=== PATIENT | male | born 1950 | race Caucasian/White ===

== ENCOUNTER 2018-11-14 06:47 | Inpatient (IN) ==
--- NOTE | 2018-10-22 16:27 | PAT Medication Instructions ---
Medication Instructions Date of Service October 22, 2018 Home Medications acetaminophen [Tylenol Extra Strength] 500 mg PO Q6H PRN aspirin [Aspir-81] 81 mg PO QAM dutasteride 0.5 mg PO QAM lisinopril 10 mg PO QAM meloxicam 15 mg PO QAM simvastatin [Zocor] 20 mg PO HS tamsulosin 0.4 mg PO QAM ASK your surgeon for instructions meloxicam 15 mg PO QAM DO NOT take the morning of surgery lisinopril 10 mg PO QAM Take morning of surgery With a small sip of water, OTHERWISE NOTHING TO EAT OR DRINK AFTER MIDNIGHT: acetaminophen [Tylenol Extra Strength] 500 mg PO Q6H PRN (okay to take up to 4 hours prior to surgery if needed) aspirin [Aspir-81] 81 mg PO QAM dutasteride 0.5 mg PO QAM tamsulosin 0.4 mg PO QAM Take evening before surgery acetaminophen [Tylenol Extra Strength] 500 mg PO Q6H PRN (if needed) simvastatin [Zocor] 20 mg PO HS Other Notes If you have any questions please call us at [phone] or [phone] or [phone] or [phone]
--- NOTE | 2018-10-23 09:19 | Anesthesiology Consultation ---
Date of Service October 23, 2018 Assessment & Plan (1) Encounter for pre-operative examination: Chart Review Chart Review: Pending: Refer to Additional Notes / Consult section (pending preop testing (labs, EKG, CXR)) and Patient seen in Pre Admission Testing Teaching & Discussion Pre-Anesthesia Teaching/Discussion Notes: Instructed NPO after midnight before surgery,except medications with 15 cc of water. Medication instructions prov ided according to the PAT guidelines. History Surgery Operation Date: 11/14/18 11:00 Proposed Procedures p Right Total Knee Arthroplasty - Zeyad Rose MD Height/Weight Height: 6 ft Weight: 96.3 kg Allergies Allergy/AdvReac Type Severity Reaction Status Date / Time Penicillins Allergy Unknown Rash Verified 10/17/18 12:15 Medications Home Medications Medication Instructions Recorded Confirmed Last Taken acetaminophen [Tylenol Extra 500 mg PO Q6H PRN 10/17/18 10/17/18 Unknown Strength] aspirin [Aspir-81] 81 mg PO QAM 10/17/18 10/17/18 Unknown dutasteride 0.5 mg PO QAM 10/17/18 10/17/18 Unknown lisinopril 10 mg PO QAM 10/17/18 10/17/18 Unknown meloxicam 15 mg PO QAM 10/17/18 10/17/18 Unknown simvastatin [Zocor] 20 mg PO HS 10/17/18 10/17/18 Unknown tamsulosin 0.4 mg PO QAM 10/17/18 10/17/18 Unknown Past Medical History Medical History BPH (benign prostatic hyperplasia) Hyperlipidemia Hypertension Osteoarthritis Exercise / Class Metabolic Activity II 4-5 Yardwork/Stairs/Walk up hill Past Surgical History Surgical History History of arthroscopy LEFT KNEE History of colonoscopy History of repair of rotator cuff RIGHT Past Anesthesia History No Hx of Anesthesia Complications and No Family Hx of Anesthesia Complications History of PONV No Hx of PONV and No Hx of Motion Sickness Social History Smoking Status: Never smoker Do You Dip or Chew Tobacco: No Hx Alcohol Use: Yes Alcohol Intake Frequency Comment: RARE Hx Substance Use: No substance use type: does not use Review of Systems Patient denies chest pain, shortness of breath, dyspnea on exertion, reflux, cough, wheezing, palpitations. Physical Exam Vital Signs VITALS BP 110/69 P 67 TEMP 97.5 SP02 96%RA RESP 16 PHYSICAL Full neck and c-spine range of motion. Full TMJ range of motion. TMD 3 finger breaths Mallampati Score 1 Dentition: missing molars, crown on side Lungs: clear throughout to auscultation Cardiac: regular rate and rhythm, no murmurs noted Spine: normal Carotid arteries: negative bruit Extremities: no edema Testing Laboratory Results 10/04/18 SODIUM 141 POTASSIUM 4.6 CHLORIDE 104 CO2 26 BUN 19 CREATININE 0.9 GLUCOSE 106
--- NOTE | 2018-10-23 10:05 | XRay Report ---
XR chest Pre-admission PA/Lat CLINICAL HISTORY: 68 years-old Male presenting with preoperative assessment. TECHNIQUE: PA and lateral views of the chest were obtained. COMPARISON: None. FINDINGS: Atherosclerosis of the aortic arch. Cardiac silhouette top normal in size. Lungs and pleural spaces c lear. Degenerative changes of the thoracic spine. Upper abdomen normal. IMPRESSION: 1. No acute cardiopulmonary disease. Electronically signed by: Marvin Ashley M.D. 10/23/2018 10:03 AM
[2018-10-23 11:46] LABS: Basophils # (auto) 0.01 K/uL (0-0.2); Basophils % (auto) 0.1 %; Eosinophils % (auto) 2.9 %; Hematocrit (blood only) 43.7 % (42-52); Hemoglobin 14.9 g/dL (14.0-18.0); Immature Granulocytes # (auto) 0.01 K/uL (0.00-0.02); Immature Granulocytes % (auto) 0.1 %; Lymphocytes # (auto) 1.82 K/uL (1.2-3.4); Lymphocytes % (auto) 26.8 %; Mean Corpuscular Hemoglobin 32.4 pg (25-34); Mean Corpuscular Hgb Conc 34.1 g/dL (32-36); Mean Platelet Volume 10.4 fL (7.4-10.4); Monocytes # (auto) 0.64 K/uL (0.11-0.59); Monocytes % (auto) 9.4 %; Neutrophils % (auto) 60.7 %; Platelet Count 210 K/uL (130-400); RDW Coefficient of Variation 13.3 % (11.5-14.5); RDW Standard Deviation 45.9 fL (36.4-46.3); White Blood Count 6.78 K/uL (4.8-10.8)
[2018-10-23 11:50] LABS: Appearance Urine Clear (Clear); Bilirubin Urine Negative (Negative); Blood Urine Negative (Negative); Color Urine Yellow; Glucose Urine UA Negative (Negative); Ketones Urine Negative (Negative); Leukocyte Esterase Urine Negative (Negative); Nitrite Urine Negative (Negative); Protein Urine Negative (Negative); Specific Gravity Urine 1.027 (1.000-1.030); Urobilinogen Urine Negative (Negative); pH Urine 6.5 (4.5-7.5)
[2018-10-23 12:02] LABS: Partial Thromboplastin Time 26.2 Seconds (21.0-31.0); Prothrombin Time 10.3 Seconds (9.0-12.0)
[2018-10-23 12:51] LABS: Estimated Average Glucose 117 mg/dl; Hemoglobin A1C 5.7 % (4.5-5.6)
--- NOTE | 2018-11-13 20:40 | History and Physical Report ---
DATE OF ADMISSION: 11/14/2018 CHIEF COMPLAINT: Chronic right knee pain. HISTORY OF PRESENT ILLNESS: This is a 68-year-old male patient of Dr. Ross, complaining of chronic right knee pain, longstanding, now progressively getting worse. The patient has failed conservative treatment including Voltaren gel, Tylenol, anti-inflammatories and home exercise program. The patient has increased pain with weightbearing activities and his pain does interfere with his activities of daily living. The patient has been diagnosed with end-stage osteoarthritis per clinical and radiographic exams. The patient wished to proceed with a right total knee arthroplasty. PAST MEDICAL HISTORY: Hypertension, hypercholesterolemia, osteoarthritis. SOCIAL HISTORY: Nonsmoker, nondrinker. PAST SURGICAL HISTORY: Right shoulder and left knee. FAMILY HISTORY: Noncontributory. REVIEW OF SYSTEMS: Chronic right knee pain, otherwise denies any shortness of breath, chest pain, nausea, vomiting or any other joint complaints. MEDICATIONS: 1. Meloxicam 15 mg daily. 2. Vardenafil 10 mg daily. 3. Tamsulosin 0.4 mg every day half hour after a meal. 4. Simvastatin 20 mg daily. 5. Lisinopril 10 mg daily. 6. Dutasteride 0.5 mg daily. 7. Diclofenac gel 1% topical 4 times to affected area. 8. Aspirin 81 mg daily. ALLERGIES: PENICILLIN, WHICH CAUSES A RASH. PHYSICAL EXAMINATION: GENERAL: Well-developed, well-nourished 68-year-old male in no acute distress. He is alert and oriented x3 and pleasant. HEENT: Normocephalic, atraumatic. Extraocular motions are intact. Pupils are equal and reactive to light. HEART: Regular rate and rhythm, no murmurs appreciated. LUNGS: Clear. ABDOMEN: Soft, nontender, bowel sounds present. EXTREMITIES: Right knee limited range of motion of 0-125 with a mild effusion. He has a varus deformity with medial joint line tenderness. He has 5/5 strength. NEUROLOGIC: Neurovascularly, he is intact in his right lower extremity. DIAGNOSES: Right knee end-stage osteoarthritis, hypertension, hypercholesterolemia, osteoarthritis. PLAN: The patient was advised of his diagnosis. Indications, risks, benefits, postop course have all been reviewed. The patient wished to proceed with a right total knee arthroplasty. Necessary consent forms, preoperative testing and clearances will be obtained.
[~2018-11-14 06:47] MED LIST: ACETAMINOPHEN 500 MG TAB PO SCH; BUPIVACAINE 0.5 % 5 MG/1 ML PF 10ML VIAL ONE; CeleBREX 200 MG CAP PO SCH; FAMOTIDINE 20 MG TAB PO SCH; GABAPENTIN 300 MG CAP PO SCH; LR 500ML BOLUS, THEN 15ML/HR IV SCH; METOCLOPRAMIDE HCL 10 MG TABLET PO SCH; ROPIVACAINE 0.5% HCL/PF 150 MG, BUPIVACAINE 0.5% MPF 30 ML, EPINEPHrine 30MG/30ML (OR U... INFIL SCH; TRANEXAMIC ACID 1,000 MG **IV Intra-op IV SCH; TRANEXAMIC ACID 1,000 MG **IV Pre-op IV SCH; VANCOMYCIN HCL 1,500 MG in SODIUM CHLORIDE 0.9% 500 ML IV SCH; dexAMETHasone 4 MG TAB PO SCH
[2018-11-14] MEDS ORDERED: ORTHO JOINT ANESTHETIC ONE (06:59)
[2018-11-14] MEDS ORDERED: BACITRACIN INJ 50,000 UNIT VIAL ONE (06:59)
[2018-11-14] MEDS ORDERED: MIDAZOLAM HCL 1 MG/ML 2ML VIAL ONE ×3 (07:18→09:43)
--- NOTE | 2018-11-14 07:20 | History & Physical Bridge Note ---
Date of Service November 14, 2018 History & Physical Bridge Note I have examined the patient, reviewed the History & Physical and in the interval since the performance of the History & Physical I have noted the following changes of clinical significance: no changes noted
[2018-11-14] MEDS ORDERED: LIDOCAINE HCL 2% 2 ML VIAL/AMP(20MG/ML) INFIL ONE (07:21)
[2018-11-14] MEDS ORDERED: PROPOFOL IV EMULSION 10 MG/ML 20 ML VIAL IV ONE ×3 (07:21→10:08)
[2018-11-14] MEDS ORDERED: ePHEDrine sulfate 50 MG/ML AMP IV PRN (07:53)
[2018-11-14] MEDS ORDERED: fentaNYL citrate 100 MCG/2 ML VIAL IV PRN (07:53)
[2018-11-14] MEDS ORDERED: ONDANSETRON INJ 2 MG/ML 2 ML VIAL IV PRN ×2 (07:53→12:07)
[2018-11-14] MEDS ORDERED: ATROPINE SULFATE 0.1 MG/ML 10ML SYR IV PRN (07:53)
[2018-11-14] MEDS ORDERED: fentaNYL citrate 100 MCG/2 ML VIAL ONE (09:55)
[2018-11-14] MEDS ORDERED: ONDANSETRON INJ 2 MG/ML 2 ML VIAL ONE (09:55)
--- NOTE | 2018-11-14 10:25 | Post Operative Brief Note ---
Immediate Post Op Note v1 Date of Surgery November 14, 2018 Pre & Post Diagnosis Operation Date: 11/14/18 08:40 Pre-Op Diagnosis: Right Knee Osteoarthritis Post-Op Diagnosis: Right Knee Osteoarthritis I personally identified the patient: Yes Procedure Operation Date: 11/14/18 08:40 Actual Procedures p Right Total Knee Arthroplasty(Right) - Zeyad Rose MD Surgeon Zeyad Rose MD Manager Social Media Juarez MURDOCK Estimated Blood Loss 5 Findings Consistent with Post-Op Diagnosis Specimens Bone cuts Drains Hemovac Drain Anesthesia Type MAC Spinal Regional Complications none Disposition Accompanied Patient To Recovery: No Disposition: Recovery Room Overlapping Procedure I was present for: the critical portions of procedure.
--- NOTE | 2018-11-14 11:25 | XRay Report ---
XR knee RT 2V routine CLINICAL HISTORY: Surgical Post Op COMPARISON: None. DISCUSSION: There are postsurgical changes of a total right knee arthroplasty and patellar resurfacin g. Overlying skin orion and surgical drains are evident. The femoral tibial components appear well seated. There is soft tissue gas consistent with recent surgery. IMPRESSION: Postsurgical changes of a total right knee arthroplasty. Electronically signed by: Boris Bergman M.D. 11/14/2018 11:23 AM
--- NOTE | 2018-11-14 11:37 | Anesthesiology Progress Note ---
Date of Service November 14, 2018 Anesthesia Post Procedure Vital Signs Vital Signs: Temp Pulse Pulse Resp BP Pulse Ox 11/14/18 11:35 98.2 F 61 16 110/69 96 11/14/18 11:25 98.2 F 68 16 106/68 96 11/14/18 11:15 65 16 108/59 L 96 11/14/18 11:05 75 16 106/63 96 11/14/18 10:55 77 16 117/62 96 11/14/18 10:47 99.0 F 80 16 102/60 96 11/14/18 07:51 97.9 F 70 20 145/77 H 96 Pain Intensity Right Knee: Pain Intensity: 1 Transfer of Care Handoff Completed per policy Notes Mental Status: alert / awake / arousable and participated in evaluation Patient Amnestic to Procedure: Yes Nausea / Vomiting: adequately controlled Pain: adequately controlled Airway Patency, RR, SpO2: stable & adequate BP & HR: stable & adequate Hydration State: stable & adequate Neuraxial Anesthesia: was administered and sensory block is resolving Anesthetic Complications: no major complications apparent and Pt Satisfied with anesthetic care
[2018-11-14] MEDS ORDERED: MAGNESIUM HYDROXIDE SUSP 30 ML UDC PO PRN (12:07)
[2018-11-14] MEDS ORDERED: bisacodyL 10 MG SUPP PR PRN (12:07)
[2018-11-14] MEDS ORDERED: NALOXONE HCL 0.4 MG/1 ML VIAL/CARP IV PRN (12:07)
[2018-11-14] MEDS ORDERED: VANCOMYCIN CONSULT ACTIVE PRN (12:07)
[2018-11-14] MEDS ORDERED: HYDROmorphone INJ 0.5 MG/0.5 ML SYR IV PRN (12:07)
[2018-11-14] MEDS: SODIUM CHLORIDE 0.9% 1000ML 1,000 ML IV SCH ×2 (12:30→21:33)
--- NOTE | 2018-11-14 13:12 | Hospitalist Consultation ---
Date of Consultation November 14, 2018 Assessment & Plan (1) History of arthroplasty of right knee: - POD#0 - activity and wound care orders as per ortho - pain control with bowel regimen - PT/OT - monitor H/H for acute blood loss anemia and transfuse blood products PRN - EBL 5cc (2) Hypertension: -BP controlled, continue lisinopril (3) Hyperlipidemia: -Continue statin (4) BPH (benign prostatic hyperplasia): -Continue dutasteride and tamsulosin (5) DVT prophylaxis: -Aspirin 81 mg twice daily as per orthopedics Thank you for this consultation. We will follow the patient with you during their hospital stay. You can reach a member of the [facility] Hospitalist Team 29/08 via pager @ [phone]. Patient was seen in collaboration with Dr. Ma and will be followed by Dr. Bryant beginning 11/15. Supervising Physician Co-Signing Physician Notes Attending addendum The patient was seen and examined in the medical floor He is a status post right knee arthroplasty, POD #0 He denies any significant symptoms except bilateral leg numbness secondary to surgery and right knee pain Denies any chest pain, palpitation, shortness of breath, abdominal pain, nausea and/or vomiting On examination No apparent distress at rest He is hemodynamically stable Chest clear to auscultate bilaterally Heart S1-S2 regular, no murmur appreciated Abdomen-soft, benign, nontender Extremities-trace edema bilateral His labs and imaging studies reviewed Has high blood pressure and hyperlipidemia which are stable Agree with assessment and plan as outlined above by Treasure Ma History of Present Illness Reason for Consultation: Postop medical management Requesting Physician: Dr. Rose Attending Physician: Dr. Ma History of Present Illness 68-year-old male who is status post right total knee arthroplasty today by Dr. Rose. Postoperatively the patient is doing well. Pain is well controlled. He continues to have numbness of the bilateral lower extremities from anesthesia. He denies chest pain and shortness of breath. No abdominal pain or nausea. Denies lightheadedness and dizziness. He has not voided since surgery. Allergies Allergy/AdvReac Type Severity Reaction Status Date / Time Penicillins Allergy Unknown Rash Verified 11/14/18 07:24 Home Medications Home Medications Medication Instructions Recorded Confirmed Type acetaminophen [Tylenol Extra 500 mg PO Q6H PRN 10/17/18 11/14/18 History Strength] aspirin [Aspir-81] 81 mg PO QAM 10/17/18 11/14/18 History dutasteride 0.5 mg PO QAM 10/17/18 11/14/18 History lisinopril 10 mg PO QAM 10/17/18 11/14/18 History meloxicam 15 mg PO QAM 10/17/18 11/14/18 History simvastatin [Zocor] 20 mg PO HS 10/17/18 11/14/18 History tamsulosin 0.4 mg PO QAM 10/17/18 11/14/18 History Patient History Medical History Hypertension (Chronic) Hyperlipidemia (Chronic) BPH (benign prostatic hyperplasia) (Chronic) Osteoarthritis (Chronic) Surgical History History of repair of rotator cuff (Chronic) RIGHT History of arthroscopy (Chronic) LEFT KNEE History of colonoscopy (Chronic) Family History Father Hypertension Brother Prostate cancer Mother Hypertension Social History Preferred Language: Amharic Communication Ability: Effective 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: No Beliefs That Will Affect Care: None Current Living Situation: Family Other Information That Helps Us Care for You: No Feels Safe at Home: Yes Safety Concerns: Feels Safe At This Time Smoking Status: Never smoker Do You Dip or Chew Tobacco: No ; Second Hand Exposure: No ; Tobacco Cessation Education Requested by Patient: No Hx Alcohol Use: Yes Hx Substance Use: No Review of Systems Review of Systems: ROS per HPI, all other systems reviewed and negative Physical Exam Constitutional: WD/WN, vitals as above Eyes: PERRL, conjunctivae normal, anicteric sclerae ENMT: external ear and nose normal, oropharynx normal Respiratory: normal respiratory effort, lungs clear to auscultation Cardiovascular: Rate/Rhythm: regular rate and regular rhythm Vessels: normal peripheral pulses Extremities: no edema Gastrointestinal (Abdomen): normal bowel sounds, soft, nontender, no hepatosplenomegaly Musculoskeletal: Extremities: no cyanosis and no clubbing S/P right knee surgery, surgical dressing dry and intact, drain in place draining bloody drainage, circulation intact however sensory and movement remains decreased from anesthesia Skin: no rashes, warm and dry Neurologic: PERRL, EOMI, accommodation nl, no face palsy, no dysarthria Psychiatric: A+Ox3, euthymic affect Results & Data Vital Signs (Past 12 Hours) Vital Signs Temp Pulse Pulse Resp BP Pulse Ox 11/14/18 12:26 62 16 129/74 97 11/14/18 11:50 36.3 C L 62 12 117/74 97 11/14/18 11:35 36.8 C 61 16 110/69 96 11/14/18 11:25 36.8 C 68 16 106/68 96 11/14/18 11:15 65 16 108/59 L 96 11/14/18 11:05 75 16 106/63 96 11/14/18 10:55 77 16 117/62 96 11/14/18 10:47 37.2 C 80 16 102/60 96 11/14/18 07:51 36.6 C 70 20 145/77 H 96
[2018-11-14] MEDS: ACETAMINOPHEN 500 MG TAB PO SCH ×2 (13:47→21:33)
--- NOTE | 2018-11-14 17:24 | Operative Report ---
Post Operative Report Pre & Post Diagnosis Operation Date: 11/14/18 08:40 Pre-Op Diagnosis: Right Knee Osteoarthritis Post-Op Diagnosis: Right Knee Osteoarthritis I personally identified the patient: Yes Procedure Operation Date: 11/14/18 08:40 Actual Procedures p Right Total Knee Arthroplasty(Right) - Zeyad Rose MD Surgeon Zeyad Rose MD Blocker And Cutter Contact Lens Juarez MURDOCK Estimated Blood Loss 5 Findings Consistent with Post-Op Diagnosis Specimens Bone cuts Drains 2 Hemovac Anesthesia Type MAC Spinal Regional Complications none Disposition Accompanied Patient To Recovery: No Disposition: Recovery Room Indications 68-year-old active male with bilateral knee osteoarthritis. He has varus knees [id number] medial compartment bilateral knees but the right knee is worse than his left. Patient is also having a feeling of instability in the right knee. Description of Procedure Patient taken to the operating room the size under spinal MAC regional anesthesia. Patient was placed supine on the operating table. A pneumatic tourniquet was placed about the right upper thigh. The right lower extremity was prepped and draped in sterile fashion. Knee exam demonstrated varus knee positive Rochelle exam -5 through 120 degrees range of motion. The leg was elevated exsanguinated with an Esmarch bandage and pneumatic tourniquet was raised to 300 millimeters of mercury. Skin incised sharply in longitudinal fashion. Subcutaneous flaps elevated. Incision was made through the medial retinaculum extending up in the mid third of the quadriceps tendon and down to the medial tibial tubercle. Intra-articular findings demonstrated chronic ACL tear eburnated bone medial compartment with bone loss posterior medial joint space femoral condyle and tibia tricompartmental OA including patellofemoral joint with large patellofemoral osteophytes. Patient also had posterior medial posterior lateral osteophytes and femoral condyles. The [employer] triathlon total knee arthroplasty system was used. To expose the knee the infrapatellar fat pad was resected. The meniscal remnants and cruciate ligaments were resected. The anterior fat pad over the femur in the area of the anterior flange of the femoral component was resected. Lateral synovial bands release. The femur was exposed. An intramedullary drill hole was made into the canal. A guide martina was placed. Distal femoral cutting guide was adjusted to resect a 5 degree valgus cut with 10 millimeters distal femur resected. The knee was extended and a subperiosteal peel lateral release was performed around the patella. Patella width was measured and width was reproduced using a freehand cut technique and a 39 symmetrical patella component. The 3 drill holes were made and the excess lateral facet was beveled off to prevent any impingement. Attention was taken back to the femur which was exposed with retractors and the femoral sizing guide was pinned in position. The drill holes were placed in 3 of external rotation to match epicondylar axis. Femur sized for an 8 component. The 4-in-1 cutting block was placed and then the anterior posterior and chamfer cuts are made. The tibia was then subluxed. The external tibial cutting guide was just to make a perpendicular cut to the long axis of the tibia below the most deficient bone loss side. A lamina mobile homes repairer was used and the flexion extension gaps were balanced. All posterior osteophytes removed. All meniscal remnants were resected. The tibia exposed and the trial tibial component size 7 was externally rotated in line with the tibial tubercle and pinned in position. The punch for stem was used. The notch cutting device was centered appropriately and the femoral notch cut was made. The femoral trial was inserted. Trial tibial inserts were placed and size 9 mm gave balanced ligaments through flexion and extension. Patella tracking was assessed. The patella tracked centrally. The trial components were then removed and the orthomix anesthetic cocktail was injected per protocol. The knee was then copiously irrigated with pulsatile lavage antibiotic solution. Final components were then cemented with Simplex cement. Final components were size 8 right posterior stabilized triathlon Raymond total knee replacement femoral component, size 7 primary tibial baseplate, size 9 posterior stabilized tibial insert X3 polyethylene, size 39 x 11 symmetrical X3 polyethylene patella. While the cement cured the Betadine soak was used per protocol. After cement cured further pulsatile lavage irrigation performed and 2 Hemovac drains were brought out laterally. The quadriceps tendon and medial retinaculum were closed with figure of 8 #1 Vicryl sutures. The knee was taken through full range of motion and the repair was secure. The subcutaneous tissues were closed with 2-0 Vicryl sutures. Skin was closed with orion. Sterile dressings were applied. Patient procedure well. Juarez MURDOCK was my physician floral assistant who assisted in patient positioning prepping and draping,leg positioning ,soft tissue retraction and instrument management and participated in the closing and will participate in postoperative care of the patient. The patient tolerated the procedure well. I attest to the content of the Intraoperative Record and any orders documented therein. Any exceptions are noted below.
[2018-11-14] MEDS: DUTASTERIDE - ORDER AWAITING ACTION SCH (17:32)
[2018-11-14] MEDS: FERROUS GLUCONATE 324 MG TAB PO SCH (17:33)
[2018-11-14] MEDS ORDERED: VANCOMYCIN HCL 1,500 MG in SODIUM CHLORIDE 0.9% 500 ML IV SCH (20:00)
[2018-11-14] MEDS ORDERED: VANCOMYCIN HCL 1,500 MG in SODIUM CHLORIDE 0.9% 250 ML IV SCH (20:00)
[2018-11-14] MEDS: ASPIRIN 81 MG ECTAB PO SCH (21:03)
[2018-11-14] MEDS: DOCUSATE SODIUM 100 MG CAP PO SCH (21:03)
[2018-11-14] MEDS: SENNA 8.6 MG TAB PO SCH (21:03)
[2018-11-14] MEDS: SIMVASTATIN 20 MG TAB PO SCH (21:04)
[2018-11-15] MEDS: DUTASTERIDE - ORDER AWAITING ACTION SCH ×4 (00:19→23:27)
[2018-11-15] MEDS: OXYCODONE HCL IR 5 MG TAB (IMMEDIATE RELEASE) PO PRN ×4 (00:40→21:31)
[2018-11-15] MEDS: ACETAMINOPHEN 500 MG TAB PO SCH ×3 (04:20→21:26)
[2018-11-15 05:35] LABS: Hematocrit (blood only) 35.3 % (42-52); Hemoglobin 12.1 g/dL (14.0-18.0); Mean Corpuscular Hemoglobin 31.9 pg (25-34); Mean Corpuscular Hgb Conc 34.3 g/dL (32-36); Mean Corpuscular Volume 93.1 fL (80-100); Mean Platelet Volume 10.5 fL (7.4-10.4); Platelet Count 159 K/uL (130-400); RDW Coefficient of Variation 13.4 % (11.5-14.5); RDW Standard Deviation 45.8 fL (36.4-46.3); Red Blood Count 3.79 M/uL (4.7-6.1); White Blood Count 15.79 K/uL (4.8-10.8)
[2018-11-15 06:02] LABS: BUN Creatinine Ratio 26.1 (10-20); Calcium 7.7 mg/dl (8.5-10.1); Creatinine Clr Calc Pharmacy 104.9 ml/min; Est GFR (African American) 105.6; Est GFR (Non-African American) 91.1; Potassium 4.1 mmol/L (3.5-5.1)
--- NOTE | 2018-11-15 08:18 | Anesthesiology Progress Note ---
Date of Service November 15, 2018 Anesthesia Post Procedure Vital Signs Vital Signs: Temp Pulse Pulse Resp BP Pulse Ox 11/15/18 07:44 36.5 C 61 16 96/52 L 94 11/15/18 04:10 36.5 C 61 18 107/62 96 11/15/18 00:02 36.5 C 61 18 111/62 94 11/14/18 19:25 36.5 C 120/67 11/14/18 19:06 36.3 C L 60 18 93/53 L 99 11/14/18 15:37 58 L 16 97/61 L 96 11/14/18 13:50 65 16 93/55 L 97 11/14/18 12:50 72 16 110/76 96 11/14/18 12:26 62 16 129/74 97 11/14/18 11:50 36.3 C L 62 12 117/74 97 11/14/18 11:35 36.8 C 61 16 110/69 96 11/14/18 11:25 36.8 C 68 16 106/68 96 11/14/18 11:15 65 16 108/59 L 96 11/14/18 11:05 75 16 106/63 96 11/14/18 10:55 77 16 117/62 96 11/14/18 10:47 37.2 C 80 16 102/60 96 Pain Intensity Right Knee: Pain Intensity: 4 Notes Mental Status: alert / awake / arousable and participated in evaluation Patient Amnestic to Procedure: Yes Nausea / Vomiting: adequately controlled Pain: adequately controlled Airway Patency, RR, SpO2: stable & adequate BP & HR: stable & adequate Hydration State: stable & adequate Neuraxial Anesthesia: was administered and sensory block resolved Anesthetic Complications: no major complications apparent
--- NOTE | 2018-11-15 08:23 | Hospitalist Progress Note ---
Date of Service November 15, 2018 Assessment & Plan (1) History of arthroplasty of right knee: POD#1 s/p R TKA by Dr. Rose -Pt is doing well post-operatively -Per ortho for pain control, wound care, anticoagulation and activities -H&H stable. Hgb of 12.1 today (pre-op hgb 14.9) -Continue incentive spirometry, PT/OT when appropriate (2) Hypertension: Asymptomatic hypotension today with BP 96/52 -Will hold morning dose of lisinopril (3) Hyperlipidemia: Continue statin (4) BPH (benign prostatic hyperplasia): Continue dutasteride and tamsulosin -Some post-op urinary hesitancy but only required straigh cath x 1 last evening -Bladder scan PRN (5) DVT prophylaxis: Aspirin 81 mg twice daily as per orthopedics Thank you for this consultation. We will follow the patient with you during their hospital stay. You can reach a [facility] via pager @ [phone]. Patient seen in collaboration with Dr. Bryant. Please see addendum. Supervising Physician Co-Signing Physician Notes I have seen and examined the patient and have discussed the case with the provider above. I agree with the assessment and plan as stated. 68 yo M s/p right total knee arthroplasty, postop day 1 for R knee osteoarthritis. He is tolerating p.o., denies significant pain, which is controlled with medications. Blood pressure is at goal. Continue plan as above. Thank you for this consultation we will follow the patient for the remainder of his hospitalization. DO Manny Subjective Seen in [id number]. Patient feeling well today. Some surgical site pain with move ment, otherwise no complaints. Denies fever, chills, lightheadedness, visual changes, chest pain or SOB. Tolerating diet well, no nausea or vomiting. Some urinary hesitancy but only requiring straight cath once last evening. No flatus or BM post-operatively. Review of Systems Review of Systems: At least ten systems reviewed and negative except as noted in the HPI. Physical Exam Physical Exam: General Appearance: WD/WN, vitals as above, NAD, sitting up in bed, pleasant, conversing easily Head: normocephalic, atraumatic Eyes: normal inspection, PERRL, conjunctivae normal, anicteric sclerae ENT: external ear and nose normal, oropharynx normal Neck: trachea midline, no thyromegaly normal visual inspection Respiratory: lungs clear to auscultation, no wheeze, rales, rhonchi. Normal insp/exp effort, no accessory muscle use Cardiovascular: regular rate, rhythm, no murmur, normal peripheral pulses Chest: normal inspection of chest Abdomen/GI: normal bowel sounds, soft, nontender, no hepatosplenomegaly Extremities/Musculoskelatal: R knee with surgical dressing: clean, dry intact. +Drain visualized. No cyanosis or clubbing, extremities motor strength 5/5 Neurologic: PERRL, EOMI, no dysarthria CN's II-XI intact bilaterally and moves all extremities Psychiatric: A+Ox3, euthymic affect Skin: no rashes, normal color, warm/dry Results & Data Vital Signs (Past 12 Hours) Vital Signs Temp Pulse Resp BP Pulse Ox 11/15/18 07:44 36.5 C 61 16 96/52 L 94 11/15/18 04:10 36.5 C 61 18 107/62 96 11/15/18 00:02 36.5 C 61 18 111/62 94 Laboratory Results Short CBC 11/15/18 Range/Units 04:54 WBC 15.79 H (4.8-10.8) K/uL Hgb 12.1 L (14.0-18.0) g/dL Hct 35.3 L (42-52) % Plt Count 159 (130-400) K/uL BMP 11/15/18 04:54 Sodium 139 Potassium 4.1 Chloride 111 H Carbon Dioxide 23 BUN 21 H Creatinine 0.80 Glucose 114 H Calcium 7.7 L
[2018-11-15] MEDS: MULTIVITAMIN TAB PO SCH (08:35)
[2018-11-15] MEDS: DOCUSATE SODIUM 100 MG CAP PO SCH ×2 (08:35→21:25)
[2018-11-15] MEDS: TAMSULOSIN HCL 0.4 MG CAP PO SCH (08:35)
[2018-11-15] MEDS: FERROUS GLUCONATE 324 MG TAB PO SCH ×2 (08:35→17:44)
[2018-11-15] MEDS: ASPIRIN 81 MG ECTAB PO SCH ×2 (08:35→21:25)
[2018-11-15] MEDS ORDERED: NON-FORMULARY MEDICATION (Dutasteride 0.5 MG) PO SCH (09:00)
[2018-11-15] MEDS ORDERED: lisinopriL 10 MG TAB PO SCH (09:00)
--- NOTE | 2018-11-15 10:03 | Hospitalist Progress Note ---
Date of Service November 15, 2018 Results & Data Vital Signs (Past 12 Hours) Vital Signs Temp Pulse Resp BP Pulse Ox 11/15/18 07:44 36.5 C 61 16 96/52 L 94 11/15/18 04:10 36.5 C 61 18 107/62 96 11/15/18 00:02 36.5 C 61 18 111/62 94
--- NOTE | 2018-11-15 10:21 | Orthopedic Progress Note ---
Date of Service November 15, 2018 Assessment & Plan (1) History of arthroplasty of right knee: POD #1, Right TKA PT/ OT DVT proph- ASA D/C planning- Home w OPPT As per medicine. Subjective POD #1, Doing well. Denies SOB, Cp, N/V. Pain controlled well. Wishes OPPT . Physical Exam Physical Exam: Right knee dresings c/d/i, no drainage, drain in tact. Toes/ ankle mobile. No calf tenderness. N/V+. A&Ox3. Results & Data Vital Signs (Past 12 Hours) Vital Signs Temp Pulse Resp BP Pulse Ox 11/15/18 07:44 36.5 C 61 16 96/52 L 94 11/15/18 04:10 36.5 C 61 18 107/62 96 11/15/18 00:02 36.5 C 61 18 111/62 94
[2018-11-15] MEDS: SIMVASTATIN 20 MG TAB PO SCH (21:25)
[2018-11-15] MEDS: SENNA 8.6 MG TAB PO SCH (21:25)
[2018-11-16] MEDS: OXYCODONE HCL IR 5 MG TAB (IMMEDIATE RELEASE) PO PRN ×2 (05:43→10:36)
[2018-11-16] MEDS: ACETAMINOPHEN 500 MG TAB PO SCH (05:43)
[2018-11-16 05:58] LABS: Hemoglobin 12.6 g/dL (14.0-18.0); Mean Corpuscular Hemoglobin 32.1 pg (25-34); Mean Corpuscular Hgb Conc 34.1 g/dL (32-36); Mean Corpuscular Volume 94.4 fL (80-100); Mean Platelet Volume 10.7 fL (7.4-10.4); Platelet Count 176 K/uL (130-400); RDW Coefficient of Variation 13.8 % (11.5-14.5); Red Blood Count 3.92 M/uL (4.7-6.1); White Blood Count 10.78 K/uL (4.8-10.8)
[2018-11-16 06:34] LABS: BUN Creatinine Ratio 23.2 (10-20); Creatinine Clr Calc Pharmacy 90.2 ml/min; Est GFR (African American) 96.7; Est GFR (Non-African American) 83.5; Potassium 4.1 mmol/L (3.5-5.1)
[2018-11-16] MEDS: DUTASTERIDE - ORDER AWAITING ACTION SCH (06:43)
--- NOTE | 2018-11-16 07:46 | Orthopedic Progress Note ---
Date of Service November 16, 2018 Assessment & Plan (1) History of arthroplasty of right knee: POD #2, Right TKA PT/ OT DVT proph- ASA D/C planning- Home w OPPT today. As per medicine. Subjective POD #2, Doing well. Denies SOB, CP, N/V. Pain controlled well. Physical Exam Physical Exam: Right knee silverlon c/d/i, no drainage, no erythema. Toes/ ankle mobile. No calf tenderness. N/V+. A&Ox3. Results & Data Vital Signs (Past 12 Hours) Vital Signs Temp Pulse Resp BP Pulse Ox 11/16/18 06:12 36.7 C 65 16 150/79 H 99 11/15/18 23:43 36.6 C 73 16 129/77 98
[2018-11-16] MEDS: TAMSULOSIN HCL 0.4 MG CAP PO SCH (08:07)
[2018-11-16] MEDS: ASPIRIN 81 MG ECTAB PO SCH (08:07)
[2018-11-16] MEDS: MULTIVITAMIN TAB PO SCH (08:07)
[2018-11-16] MEDS: DOCUSATE SODIUM 100 MG CAP PO SCH (08:07)
[2018-11-16] MEDS: FERROUS GLUCONATE 324 MG TAB PO SCH (08:07)
--- NOTE | 2018-11-19 07:22 | Discharge Summary ---
Date of Service November 19, 2018 Admission HPI Per Admitting Provider This is a 68-year-old male patient of Dr. Rose'jessenia, complaining of chronic right knee pain, longstanding, now progressively getting worse. The patient has failed conservative treatment including Voltaren gel, Tylenol, anti-inflammatories and home exercise program. The patient has increased pain with weightbearing activities and his pain does interfere with his activities of daily living. The patient has been diagnosed with end-stage osteoarthritis per clinical and radiographic exams. The patient wished to proceed with a right total knee arthroplasty. Admission Exam Per Admitting Provider GENERAL: Well-developed, well-nourished 68-year-old male in no acute distress. He is alert and oriented x3 and pleasant. HEENT: Normocephalic, atraumatic. Extraocular motions are intact. Pupils are equal and reactive to light. HEART: Regular rate and rhythm, no murmurs appreciated. LUNGS: Clear. ABDOMEN: Soft, nontender, bowel sounds present. EXTREMITIES: Right knee limited range of motion of 0-125 with a mild effusion. He has a varus deformity with medial joint line tenderness. He has 5/5 strength. NEUROLOGIC: Neurovascularly, he is intact in his right lower extremity Principal Diagnosis Right knee Osteoarthritis Discharge Exam Right knee silverlon c/d/i, no drainage, no erythema. Toes/ ankle mobile. No calf tenderness. N/V+. A&Ox3. Discharge Data Allergies Allergy/AdvReac Type Severity Reaction Status Date / Time Penicillins Allergy Unknown Rash Verified 11/14/18 07:24 Consultations 11/08/18 14:13 Consult Hospitalist Routine 11/14/18 12:07 Consult Case Management - Discharge Planning Routine Procedures Performed Operation Date: 11/14/18 08:40 Actual Procedures p Right Total Knee Arthroplasty(Right) - Zeyad Rose MD Ordered Studies 11/14/18 05:00 US - OR guided needle placemen Routine Hospital Course (1) Osteoarthritis: Patient was admitted on the above-noted date and had the above-noted surgery performed. On his first postoperative day, he was doing well and pain was controlled. He denies shortness of breath, chest pain, nausea or vomiting. Dressings were clean, dry, and intact. Drain was intact. Toes are mobile. He had no calf tenderness. Neurovascular was intact. He was alert and oriented. Vital signs are stable. He was started on PT and OT protocols. DVT prophylaxis. Pain management.By his second postoperative day, he was continuing to do well. He denies shortness of breath, chest pain, nausea or vomiting. Pain was controlled. Silverlon dressing was intact. No erythema was noted. Neurovascular was intact, toes are mobile. Calves are soft and nontender. He was progressing well with his physical therapy and ambulating 250 feet. He was remaining stable and was felt to be discharged home with plans for outpatient PT. Total Time Total Time Spent Total Time Spent (In Minutes): 2 Discharge Plan Discharge Items Patient Disposition: Home - Self-Care Reason For Visit: RIGHT KNEE OSTEOARTHRITIS Discharge Diagnosis: Same Activity: Per Instructions section Non-emergency contact: Surgeon Call non-emergency contact if: you have any medication questions, your pain is unusual for you, your temperature is above 101, your wound has increased redness and your wound has increased drainage Follow-up/Referrals: Camila Vásquez PA-C [Primary Care Provider] - Diet: Regular Addtl Attending Provider Instructions: ACTIVITY RECOMMENDATIONS: SELF CARE INSTRUCTIONS AFTER TOTAL KNEE REPLACEMENT A. You may need to continue a physical therapy program after discharge from the hospital. There are several options available to you. Your doctor will assist you in selecting the best one for you. 1. An out-patient facility 2 to 3 times a week for therapy or home therapy. 2. Continue working on all exercises taught to you in the hospital. Your goals should be to increase bending of your knee to 90 degrees and beyond and to fully straighten your knee. B. You may progress at your own pace from walking with a walker or crutches to a cane; then to no assistive devices. C. Make walking a part of your daily routine. Be up as much as comfortable with rest periods throughout the day. Rest with leg elevation is very important. Use the ice wrap frequently for the first 3-4 weeks. D. There are no restrictions on activities. You may ride in a car, shop, participate in rivet spinner and all social activities. E. Wear the long elastic stockings (NORA hose) 20 hours a day for 2 weeks after surgery. They can be removed several times a day for laundering and for a bath. F. You may shower, no tub baths until cleared by your doctor. SPECIAL CARE INSTRUCTIONS: VERY IMPORTANT TO READ AND REVIEW A. There are a few signs you need to watch for after you are home. Call [facility] if you notice any of the followin. Increased severe knee pain. Some pain is expected especially when you exercise. 2. Increased swelling in your leg or knee; pain or swelling of the calf muscle in either lower leg. 3. Any fluid drainage from the incision. 4. Shortness of breath or chest pain. B. Please call [facility] at if you have any concerns or questions about your operation or recovery. The doctor or his nurse will return your call promptly. C. You must take antibiotics before dental work, bladder, bowel or other surgery. Your doctor will provide you with a permanent care to carry describing this precaution. IMPORTANT: * REMEMBER TO TAKE ASPIRIN, 81 MG, TWICE DAILY FOR 4 WEEKS UNLESS OTHERWISE DIRECTED. THIS IS YOUR BLOOD THINNER. * HIGH RISK PATIENTS MAY BE PRESCRIBED A STRONGER BLOOD THINNER. THIS WILL BE PROVIDED AT DISCHARGE. * CALL IF INCREASED PAIN, REDNESS, DRAINAGE OR FEVER GREATER THAT 101. * WEAR NORA HOSE 20 HOURS PER DAY FOR 2 WEEKS. * YOU MAY HAVE A LARGE BAND-AID LIKE DRESSING (SILVERON). THIS WILL REMAIN ON YOUR INCISION FOR 7 DAYS, THEN CAN BE REMOVED. IF INCISION IS LEAKING THROUGH DRESSING, CALL THE OFFICE . FOLLOW UP VISIT: If appointment is not already scheduled: Please call [facility] to make a follow-up appointment for 2 weeks after your surgery at . Pending Studies at Discharge: No Stand-Alone Forms: My [facility] Medications and DC Order Prescriptions: New acetaminophen [Tylenol Extra Strength] 500 mg Tablet 1,000 mg PO Q8 30 Days Qty: 180 RF: 0 aspirin [Ecotrin Low Strength] 81 mg Tablet,Delayed Release (Dr/Ec) 81 mg PO BID 30 Days Qty: 60 RF: 0 oxycodone 5 mg Tablet 5 mg PO Q4H PRN (Reason: pain) Qty: 30 RF: 0 Continued tamsulosin 0.4 mg Capsule 0.4 mg PO QAM RF: 0 simvastatin [Zocor] 20 mg Tablet 20 mg PO HS RF: 0 lisinopril 10 mg Tablet 10 mg PO QAM RF: 0 dutasteride 0.5 mg Capsule 0.5 mg PO QAM RF: 0 Discontinued meloxicam 15 mg Tablet 15 mg PO QAM RF: 0 aspirin [Aspir-81] 81 mg Tablet,Delayed Release (Dr/Ec) 81 mg PO QAM RF: 0 acetaminophen [Tylenol Extra Strength] 500 mg Tablet 500 mg PO Q6H PRN (Reason: Pain) RF: 0 Discharge Orders: Discharge Order (Routine); Ordered 11/16/18 Ordered By: Gonzalez May Admission Data Admit Date/Time: 11/14/18 10:54 Attending Provider: Zeyad Rose Admit Provider: Zeyad Rose Primary Care Provider: Camila Vásquez. Other Providers: Zoya Bryant Other Interventions: Discharge Summary Assessment (RN) Last Done: 11/16/18 08:43 DC Date/Time DO NOT enter until pt leaves facility: 11/16/18 11:47
== END 2018-11-16 11:47 | disposition home or self-care (01) | DRG 470 ==
LOC: ASU 06:47 → 3E 10:54

== ENCOUNTER 2021-06-02 09:28 | Observation (INO) ==
--- NOTE | 2021-05-31 14:32 | Anesthesiology Consultation ---
Date of Service May 31, 2021 Assessment & Plan (1) Encounter for pre-operative examination: - COVID screening: Per produce manager on 05/31/2021: Travel screen negative, no known COVID-19 positive contacts or current COVID-19 related symptoms in past 2 weeks. Patient vaccinated. Surgeon arranging preop COVID testing, scheduled 05/31/2021. Awaiting results. Chart Review Chart Review: Acceptable Risk for Surgery and Patient NOT seen in Pre Admission Testing History Surgery Operation Date: 06/02/21 11:50 Proposed Procedures p Left Total Knee Arthroplasty - Zeyad Rose MD Surgery re-scheduled since 01/2021 anesthesia review. Height/Weight Height: 6 ft Weight: 92.986 kg Allergies Allergy/AdvReac Type Severity Reaction Status Date / Time Penicillins Allergy Unknown Rash Verified 05/31/21 13:26 Medications Home Medications Medication Instructions Recorded Confirmed Last Taken dutasteride 0.5 mg capsule 0.5 mg PO QAM 10/17/18 05/31/21 11/13/18 08:30 lisinopril 10 mg tablet 10 mg PO QAM 10/17/18 05/31/21 11/13/18 08:30 simvastatin 20 mg tablet (Zocor) 20 mg PO HS 10/17/18 05/31/21 11/13/18 23:00 tamsulosin 0.4 mg capsule 0.4 mg PO QAM 10/17/18 05/31/21 11/14/18 05:15 diclofenac sodium 1 % topical gel 2 g TOPICAL QID PRN 12/22/20 05/31/21 Unknown meloxicam 15 mg tablet 15 mg PO QAM 12/22/20 05/31/21 Unknown ciprofloxacin HCl 500 mg tablet 500 mg PO BID 05/31/21 05/31/21 Unknown (Cipro) metronidazole 250 mg tablet 250 mg PO TID 05/31/21 05/31/21 Unknown Past Medical History Medical History BPH (benign prostatic hyperplasia) Diverticulitis finishing Cipro and Flagyl for this by dos > symptoms are resolved per pt Hyperlipidemia Hypertension Osteoarthritis Past Family History Family History Father Hypertension Brother Prostate cancer Mother Hypertension Other No family history of adverse response to anesthesia Past Surgical History Surgical History H/O umbilical hernia repair History of arthroplasty of right knee 11/14/2018: SAB with 1 attempt + PNB. No issues per anesthesia progress note. History of arthroscopy left knee History of colonoscopy History of repair of rotator cuff right Social History Smoking Status: Never smoker Do You Dip or Chew Tobacco: No Hx Alcohol Use: Yes alcohol intake frequency: holidays/special occasions only Hx Substance Use: No substance use type: does not use Lab Results Anesthesia Preop Results Results Anesthesia Widget: WBC 6.56 K/uL (4.8-10.8) 04/30/21 Hgb 16.1 g/dL (14.0-18.0) 04/30/21 Hct 47.1 % (42-52) 04/30/21 Plt 209 K/uL (130-400) 04/30/21 Na 137 mmol/L (136-145) 04/30/21 K 4.0 mmol/L (3.5-5.1) 04/30/21 Cl 107 mmol/L (98-107) 04/30/21 CO2 25 mmol/L (21-32) 04/30/21 BUN 19 mg/dl (6-23) 04/30/21 Creat 0.75 mg/dl (0.6-1.4) 04/30/21 Glucose Level 99 mg/dl (70-99(Fasting)) 04/30/21 PT 10.6 Seconds (9.0-12.0) 04/30/21 PTT 27.9 Seconds (21.0-31.0) 04/30/21 INR 1.0 (0.9-1.1) 04/30/21 HA1c 5.4 % (4.5-5.6) 04/30/21 Urine Color Yellow 04/30/21 Urine Appearance Clear (Clear) 04/30/21 Urine pH 6.5 (4.5-7.5) 04/30/21 Urine Specific Paradox 1.019 (1.000-1.030) 04/30/21 Urine Protein Negative (Negative) 04/30/21 Urine Glucose (UA) Negative (Negative) 04/30/21 Urine Ketones Negative (Negative) 04/30/21 Urine Blood Negative (Negative) 04/30/21 Urine Nitrite Negative (Negative) 04/30/21 Urine Bilirubin Negative (Negative) 04/30/21 Urine Urobilinogen Negative (Negative) 04/30/21 Urine Leukocyte Esterase Negative (Negative) 04/30/21 Testing Electrocardiogram Date: 01/08/21 Poor data quality Normal sinus rhythm, rate [address] abnormality noted in inferior leads-reduced when compared to 2019 ECG, significant artifact. To anesthesiologist discretion if repeat ECG needed am DOS. Reviewed with Queenie Waterman PA-C. Chest X-Ray Date: 01/08/21 Frontal and lateral radiographs of the chest demonstrate the cardiomediastinal silhouette to be within normal limits. The lungs are hyperinflated with flattening of the hemidiaphragms and increase in the retrosternal space characteristic of underlying chronic obstructive pulmonary disease. No smoking history was provided. The lungs are clear of alveolar opacities. There is no evidence for effusion bilaterally. There is no evidence for vascular congestion. There is no acute osseous pathology. IMPRESSION: No acute cardiopulmonary disease. Evidence for underlying COPD. Pre-op testing will be faxed to PCP for continuity of care.
--- NOTE | 2021-06-01 15:46 | History & Physical Report ---
Date of Service June 01, 2021 Assessment & Plan (1) Primary osteoarthritis of left knee: Plan: Treatment options discussed with the patient. He has failed conservative measures. He would like to proceed with replacement. Risks, benefits and alternatives to surgery including but not limited to infection, DVT, pain, stiffness, need for revision surgery, damage to blood vessels, damage to nerves, PE, , were discussed with the patient and they wish to proceed. Plan on left total knee arthroplasty at [facility] on 06/02/[address] Rose. Will plan on aspirin 81mg twice daily for 1 mo post op for DVT prophylaxis. Will plan on outpatient PT. All questions answered. He will follow up post op. History of Present Illness Chief Complaint: Left knee pain Primary Care Provider: Camila Vásquez PA-C 70 year old male with PMHx significant for HTN, high cholesterol, and diverticulitis presents with ongoing left knee pain. Pain interferes with his daily activities. He has failed conservative measures including injections and anti-inflammatories. He would like to proceed with replacement. Patient denies headaches, sweats, fevers, chills, double vision, blurred vision, cough, sore throat, dysphagia, chest pain, sob, wheezing, n/v/d/c, numbness, tingling, fatigue, urinary symptoms, mood disorders. ROS positive for left knee pain and stiffness. Allergies Allergy/AdvReac Type Severity Reaction Status Date / Time Penicillins Allergy Unknown Rash Verified 05/31/21 13:26 Home Medications Medication Instructions Recorded Confirmed Type dutasteride 0.5 mg capsule 0.5 mg PO QAM 10/17/18 05/31/21 History lisinopril 10 mg tablet 10 mg PO QAM 10/17/18 05/31/21 History simvastatin 20 mg tablet (Zocor) 20 mg PO HS 10/17/18 05/31/21 History tamsulosin 0.4 mg capsule 0.4 mg PO QAM 10/17/18 05/31/21 History diclofenac sodium 1 % topical gel 2 g TOPICAL QID PRN 12/22/20 05/31/21 History meloxicam 15 mg tablet 15 mg PO QAM 12/22/20 05/31/21 History ciprofloxacin HCl 500 mg tablet 500 mg PO BID 05/31/21 05/31/21 History (Cipro) metronidazole 250 mg tablet 250 mg PO TID 05/31/21 05/31/21 History Past Med/Surg History Medical History BPH (benign prostatic hyperplasia) Diverticulitis finishing Cipro and Flagyl for this by dos > symptoms are resolved per pt Hyperlipidemia Hypertension Osteoarthritis Surgical History H/O umbilical hernia repair History of arthroplasty of right knee 11/14/2018: SAB with 1 attempt + PNB. No issues per anesthesia progress note. History of arthroscopy left knee History of colonoscopy History of repair of rotator cuff right Family History Father Hypertension Brother Prostate cancer Mother Hypertension Other No family history of adverse response to anesthesia Social History Smoking Status: Never smoker Second Hand Exposure: No; Hx Alcohol Use: Yes Hx Substance Use: No Preferred Language: Israeli Communication Ability: Effective Reproduction Specialist Required: No Beliefs That Will Affect Care: None Current Living Situation: Family Current Living Situation Comment: son Wilder Feels Safe at Home: Yes Assistive Devices: Glasses Review of Systems All systems reviewed & are unremarkable except as noted in HPI & below Physical Exam Constitutional: well developed and well nourished; no acute distress Eyes: PERRL, conjunctivae normal, anicteric sclerae ENMT: external ear and nose normal, oropharynx normal Neck: trachea midline, no thyromegaly Respiratory: normal respiratory effort, lungs clear to auscultation Cardiovascular: RRR, no murmur, no edema Musculoskeletal: Left knee: Varus alignment. Medial and lateral joint line tenderness. Severe crepitation with ROM. ROM is 10-105 degrees. Stable to valgus and varus stress. Skin: no rashes, warm and dry Neurologic: patellar DTR's 2+ bilat, sensation intact Psychiatric: A+Ox3, euthymic affect Results & Data ([facility]) Diagnostic Findings Left knee radiographs: Severe tricompartmental osteoarthritis, bone on bone medial compartment with periarticular osteophyte formation and subchondral sclerosis.
[~2021-06-02 09:28] MED LIST changes: +BUPIVACAINE 0.25% 30 ML VIAL ONE; +BUPIVACAINE 0.5 % 5 MG/1 ML MPF 30ML VIAL ONE; -BUPIVACAINE 0.5 % 5 MG/1 ML PF 10ML VIAL ONE; +DEXAMETHASONE SOD INJ 4 MG/ML VIAL ONE; +EPINEPHrine INJ 1 MG/ML AMP ONE; -ROPIVACAINE 0.5% HCL/PF 150 MG, BUPIVACAINE 0.5% MPF 30 ML, EPINEPHrine 30MG/30ML (OR U... INFIL SCH; +ROPIVACAINE 0.5% HCL/PF 150 MG, BUPIVACAINE 0.75% MPF 20 ML, EPINEPHrine 30MG/30ML (OR ... INFIL SCH; -VANCOMYCIN HCL 1,500 MG in SODIUM CHLORIDE 0.9% 500 ML IV SCH
[2021-06-02] MEDS ORDERED: VANCOMYCIN HCL 1,500 MG in SODIUM CHLORIDE 0.9% 500 ML IV SCH ×2 (09:45→23:00)
--- NOTE | 2021-06-02 10:16 | History & Physical Bridge Note ---
Date of Service June 02, 2021 History & Physical Bridge Note I have examined the patient, reviewed the History & Physical and in the interval since the performance of the History & Physical I have noted the following changes of clinical significance: no changes noted
[2021-06-02] MEDS ORDERED: fentaNYL citrate 100 MCG/2 ML VIAL ONE (11:06)
[2021-06-02] MEDS ORDERED: MIDAZOLAM HCL 1 MG/ML 2ML VIAL ONE ×2 (11:07)
[2021-06-02] MEDS ORDERED: ORTHO JOINT ANESTHETIC ONE (11:22)
[2021-06-02] MEDS ORDERED: ONDANSETRON INJ 2 MG/ML 2 ML VIAL IV PRN ×2 (11:48→16:19)
[2021-06-02] MEDS ORDERED: fentaNYL citrate 100 MCG/2 ML VIAL IV PRN (11:48)
[2021-06-02] MEDS ORDERED: ePHEDrine sulfate 50 MG/ML AMP IV PRN (11:48)
[2021-06-02] MEDS ORDERED: ATROPINE SULFATE 0.1 MG/ML 10ML SYR IV PRN (11:48)
[2021-06-02] MEDS ORDERED: PROPOFOL IV EMULSION 10 MG/ML 20 ML VIAL IV ONE (12:50)
[2021-06-02] MEDS ORDERED: KETAMINE 50 MG/5 ML SYRINGE ONE (13:33)
--- NOTE | 2021-06-02 14:09 | Operative Report ---
Post Operative Report Pre & Post Diagnosis Operation Date: 06/02/21 11:20 Pre-Op Diagnosis: Primary Osteoarthritis of left knee Post-Op Diagnosis: Primary Osteoarthritis of left knee I identified the patient and participated in the time-out.: Yes Procedure Operation Date: 06/02/21 11:20 Actual Procedures p Left Total Knee Arthroplasty(Left) lateral release- Zeyad Rose MD Surgeon Zeyad Rose MD [employer] Vasyl MURDOCK Estimated Blood Loss 20 Findings Consistent with Post-Op Diagnosis Specimens Bone cuts Drains 2 Hemovac Anesthesia Type MAC Spinal Regional Complications none Disposition Disposition: Recovery Room Indications 70-year-old male with severe left knee osteoarthritis varus knee tricompartmental osteoarthritis with bone loss in the medial compartment Description of Procedure Patient taken to the operating room the size under spinal MAC regional block anesthesia. Patient was placed supine on the operating table. A pneumatic tourniquet was placed about the left upper thigh. The left lower extremity was prepped and draped in sterile fashion. Knee exam demonstrated 15 degree flexion contracture with flexion to 100 degrees. The leg was elevated exsanguinated with an Esmarch bandage and pneumatic tourniquet was raised to 325 millimeters of mercury. Skin incised sharply in longitudinal fashion. Subcutaneous flaps elevated. Incision was made through the medial retinaculum extending up in the mid third of the quadriceps tendon and down to the medial tibial tubercle. Intra-articular findings demonstrated severe tricompartmental osteoarthritis with large osteophytes around the patella [id number] medial compartment bone loss in the posterior medial tibial plateau was sloped off posterior medial side of the joint. Chronic ACL tear noted. The [employer] triathlon total knee arthroplasty system was used. To expose the knee the infrapatellar fat pad was resected. The meniscal remnants and posterior cruciate ligament were resected. The anterior fat pad over the femur in the area of the anterior flange of the femoral component was resected. Lateral synovial bands release. The femur was exposed. An intramedullary drill hole was made into the canal. A guide martina was placed. Distal femoral cutting guide was adjusted to resect a 5 degree valgus cut with 10 millimeters distal femur resected. The knee was extended and a subperiosteal peel lateral release was performed around the patella. Patella width was measured and width was reproduced using a freehand cut technique and a 39 x 11 symmetrical patella component. The 3 drill holes were made and the excess lateral facet was beveled off to prevent any impingement. Attention was taken back to the femur which was exposed with retractors and the femoral sizing guide was pinned in position. The drill holes were placed in 3 of external rotation to match epicondylar axis. Femur sized for an 8 posterior stabilized component.The 4-in-1 cutting block was placed and then the anterior posterior and chamfer cuts are made. The tibia was then subluxed. The external tibial cutting guide was adjusted to make a perpendicular cut to the long axis of the tibia below a millimeter above the medial bone loss side. A lamina planting material unloader was used and the flexion extension gaps were balanced. This required a medial and posterior medial release,all posterior osteophytes removed. All meniscal remnants were resected. The tibia exposed and the trial tibial component size 7 was externally rotated in line with the tibial tubercle and pinned in position. The punch for stem was used. The notch cutting device was centered appropriately and the femoral notch cut was made. The femoral trial was inserted. Trial tibial inserts were placed and size 9 gave balanced ligaments through flexion and extension. Patella tracking was assessed. The patella tracked with some lateral tilt which improved with a towel clip but I felt we should do a lateral release to take tension off the repair and the patella tracked centrally. Lateral release performed extrasynovial leaving synovium intact. The trial components were then removed and the orthomix anesthetic cocktail was injected per protocol. The knee was then copiously irrigated with pulsatile lavage saline solution. Final components were then cemented with Refobacin cement. Final components were [place] triathlon size 8 left posterior stabilized femoral component, 7 primary tibial baseplate, 7 x 9 mm posterior stabilized tibial insert, S3 9 x 1 mm symmetrical polyethylene patella. After the cement cured the Betadine soak was used for 3 minutes. Further pulsatile lavage irrigation was then performed and 2 Hemovac drains were brought out laterally. The quadriceps tendon and medial retinaculum were closed with figure of 8 #1 Vicryl sutures. The knee was taken through full range of motion and the repair was secure. Knee range of motion was 0 through 125. The subcutaneous tissues were closed with 2-0 Vicryl sutures. Skin was closed with orion. Sterile dressings were applied. The patient tolerated the procedure well. Vasyl MURDOCK was my physician assistant shift supervisor who participated as store assistant and was involved in all aspects of the procedure including patient positioning prepping and draping,leg positioning ,soft tissue retraction and instrument management and participated in the closing and will participate in postoperative care of the patient. The patient tolerated the procedure well. I attest to the content of the Intraoperative Record and any orders documented therein. Any exceptions are noted below.
--- NOTE | 2021-06-02 15:23 | XRay Report ---
XR knee LT 1 or 2V routine CLINICAL HISTORY: Surgical Post Op. Status post knee replacement COMPARISON STUDY: No previous studies for comparison. TECHNIQUE: 2 left knee views FINDINGS: The patient is status post total knee replacement. The prosthetic components are in anatomi c alignment with no acute abnormality seen. Air is present within the soft tissues from the procedure . Skin orion are seen anteriorly. IMPRESSION: 1. Status post total knee replacement. ACT 112: Negative or not required by law. Electronically signed by: Denzel Damian M.D. 06/02/2021 3:22 PM
--- NOTE | 2021-06-02 16:08 | Anesthesiology Progress Note ---
Date of Service June 02, 2021 Anesthesia Post Procedure Vital Signs Vital Signs: Temp Pulse Pulse Resp BP Pulse Ox 06/02/21 15:50 74 20 125/78 95 06/02/21 15:40 76 22 123/77 95 06/02/21 15:30 74 15 125/78 94 06/02/21 15:20 78 14 132/78 95 06/02/21 15:10 69 14 125/69 96 06/02/21 15:00 71 17 121/71 95 06/02/21 14:50 70 12 123/69 94 06/02/21 14:44 36.5 C 78 15 122/71 94 06/02/21 10:09 36.6 C 68 20 146/85 H 95 Transfer of Care Handoff Completed per policy Notes Mental Status: alert / awake / arousable Patient Amnestic to Procedure: Yes Nausea / Vomiting: adequately controlled Pain: adequately controlled Airway Patency, RR, SpO2: stable & adequate BP & HR: stable & adequate Hydration State: stable & adequate Anesthetic Complications: no major complications apparent
[2021-06-02] MEDS ORDERED: MAGNESIUM HYDROXIDE SUSP 30 ML UDC PO PRN (16:19)
[2021-06-02] MEDS ORDERED: METOCLOPRAMIDE HCL INJ 5 MG/ML 2 ML VIAL IV PRN (16:19)
[2021-06-02] MEDS ORDERED: bisacodyL 10 MG SUPP PR PRN (16:19)
[2021-06-02] MEDS ORDERED: VANCOMYCIN CONSULT ACTIVE PRN (16:19)
[2021-06-02] MEDS ORDERED: HYDROmorphone INJ 0.5 MG/0.5 ML SYR IV PRN (16:19)
[2021-06-02] MEDS ORDERED: NALOXONE HCL 0.4 MG/1 ML VIAL/CARP IV PRN (16:19)
[2021-06-02] MEDS: SODIUM CHLORIDE 0.9% 1000ML 1,000 ML IV SCH (17:30)
--- NOTE | 2021-06-02 17:50 | Hospitalist Consultation ---
Date of Consultation June 02, 2021 Assessment & Plan (1) Primary osteoarthritis of left knee: POD#[address] Rose activity and wound care orders as per ortho pain control with bowel regimen PT/OT monitor H/H for acute blood loss anemia and transfuse blood products PRN EBL 20 cc (2) Diverticulitis: Started on Cipro and Flagyl on 05/25 for suspected diverticulitis by PCP Patient reports symptoms have resolved Outpatient follow-up (3) BPH (benign prostatic hyperplasia): Patient has required straight cath x 1 postoperatively Continue dutasteride and tamsulosin (4) Hypertension: BP controlled, continue lisinopril (5) Hyperlipidemia: Continue statin (6) DVT prophylaxis: ASA 81 mg BID as per Ortho Thank you for this consultation. We will follow the patient with you during their hospital stay. You can reach a member of the [facility] Hospitalist Team 29/08 via the [facility] Hospitalist role in [place] Text. Supervising Physician Co-Signing Physician Notes Patient is a 70-year-old male with history of hypertension, hyperlipidemia and other medical problems was consulted for postop medical management. Patient had left total knee arthroplasty by . Patient is doing well postoperatively. Denies any chest pain, shortness of breath, dizziness, nausea, abdominal pain. Left knee pain at surgical site is controlled. Patient was recently on antibiotics for suspected diverticulitis. Currently he denies any abdominal pain. On exam patient is well-built and nourished, no apparent distress, normocephalic atraumatic, EOMI, normal breath sounds, clear to auscultation, S1-S2, no murmur, no pedal edema, abdomen soft, nontender, normal bowel sounds, alert, awake, oriented, grossly no focal deficits, left knee surgical site in dressing. Postoperative state. Monitor for postop anemia. Bowel regimen to prevent constipation. Incentive spirometry. Pain control, DVT prophylaxis as per primary team. Monitor for urinary retention given history of BPH. Continue home medications. I personally reviewed the record. Patient is interviewed and examined at bedside. Patient's care is coordinated with [facility] [employer] [employer] [employer]. Please refer to the documentation above for details of patient's presentation and for discussion of other issues. History of Present Illness Reason for Consultation: Postop medical management Requesting Physician: Dr. Rose Attending Physician: Dr. Tyler History of Present Illness 70-year-old male with PMH HTN, HLD, BPH, and other problems listed below who is s/p left TKA today by Dr. Rose. Postoperatively, the patient is doing well. He reports his pain is well controlled. He reports some mild residual numbness to the LLE. No chest pain or shortness of breath. Denies abdominal pain or nausea. No lightheadedness or dizziness. Patient has required straight cath x 1 postoperatively. Noted that patient was started on Cipro and Flagyl on 05/25 for suspected diverticulitis. Patient reports symptoms have resolved. Allergies Allergy/AdvReac Type Severity Reaction Status Date / Time Penicillins Allergy Unknown Rash Verified 06/02/21 10:08 Home Medications Medication Instructions Recorded Confirmed Type dutasteride 0.5 mg capsule 0.5 mg PO QAM 10/17/18 06/02/21 History (Avodart) lisinopril 10 mg tablet 10 mg PO QAM 10/17/18 06/02/21 History simvastatin 20 mg tablet (Zocor) 20 mg PO HS 10/17/18 06/02/21 History tamsulosin 0.4 mg capsule 0.4 mg PO QAM 10/17/18 06/02/21 History diclofenac sodium 1 % topical gel 2 g TOPICAL QID PRN 12/22/20 06/02/21 History meloxicam 15 mg tablet 15 mg PO QAM 12/22/20 06/02/21 History aspirin 81 mg tablet 81 mg PO DAILY 06/02/21 06/02/21 History Patient History Medical History BPH (benign prostatic hyperplasia) Diverticulitis finishing Cipro and Flagyl for this by dos > symptoms are resolved per pt Hyperlipidemia Hypertension Osteoarthritis Surgical History H/O umbilical hernia repair History of arthroplasty of right knee 11/14/2018: SAB with 1 attempt + PNB. No issues per anesthesia progress note. History of arthroscopy left knee History of colonoscopy History of repair of rotator cuff right Family History Father Hypertension Brother Prostate cancer Mother Hypertension Other No family history of adverse response to anesthesia Social History Smoking Status: Never smoker Second Hand Exposure: No; Do You Dip or Chew Tobacco: No; Tobacco Cessation Education Requested by Patient: No Hx Alcohol Use: Yes Hx Substance Use: No Preferred Language: Yi Communication Ability: Effective [employer] Consultant Required: No Beliefs That Will Affect Care: None Current Living Situation: Family Current Living Situation Comment: son Wilder Other Information That Helps Us Care for You: No Feels Safe at Home: Yes Safety Concerns: Feels Safe At This Time Assistive Devices: Glasses Review of Systems Review of Systems: ROS per HPI, all other systems reviewed and negative Physical Exam Constitutional: WD/WN, vitals as above Eyes: PERRL, conjunctivae normal, anicteric sclerae ENMT: external ear and nose normal, oropharynx normal Respiratory: normal respiratory effort, lungs clear to auscultation Cardiovascular: Rate/Rhythm: regular rate and regular rhythm Vessels: normal peripheral pulses Extremities: no edema Gastrointestinal (Abdomen): normal bowel sounds, soft, nontender, no hepatosplenomegaly Musculoskeletal: S/p left knee surgery, surgical dressing CDI, drain in place draining bloody drainage, CSM checks intact to LLE Skin: no rashes, warm and dry Neurologic: PERRL, EOMI, accommodation nl, no face palsy, no dysarthria Psychiatric: A+Ox3, euthymic affect Results & Data Results & Data ([facility]) Vital Signs (Past 12 Hours) Vital Signs Temp Pulse Pulse Resp BP Pulse Ox 06/02/21 17:15 36.1 C L 78 20 134/76 98 06/02/21 16:50 36.1 C L 65 22 121/68 95 06/02/21 16:13 36.5 C 77 20 135/72 97 06/02/21 15:50 36.5 C 74 20 125/78 95 06/02/21 15:40 76 22 123/77 95 06/02/21 15:30 74 15 125/78 94 06/02/21 15:20 78 14 132/78 95 06/02/21 15:10 69 14 125/69 96 06/02/21 15:00 71 17 121/71 95 06/02/21 14:50 70 12 123/69 94 06/02/21 14:44 36.5 C 78 15 122/71 94 06/02/21 10:09 36.6 C 68 20 146/85 H 95
[2021-06-02] MEDS: CeleBREX 200 MG CAP PO SCH (20:49)
[2021-06-02] MEDS: SENNA 8.6 MG TAB PO SCH (20:49)
[2021-06-02] MEDS: SIMVASTATIN 20 MG TAB PO SCH (20:49)
[2021-06-02] MEDS: ASPIRIN 81 MG ECTAB PO SCH (20:54)
[2021-06-02] MEDS: DOCUSATE SODIUM 100 MG CAP PO SCH (20:54)
[2021-06-02] MEDS: ACETAMINOPHEN 500 MG TAB PO SCH (20:55)
[2021-06-03] MEDS ORDERED: VANCOMYCIN HCL 1,500 MG in SODIUM CHLORIDE 0.9% 250 ML IV SCH (01:00)
[2021-06-03] MEDS: SODIUM CHLORIDE 0.9% 1000ML 1,000 ML IV SCH (06:20)
[2021-06-03] MEDS: ACETAMINOPHEN 500 MG TAB PO SCH ×3 (06:41→20:45)
[2021-06-03 07:00] LABS: Hematocrit (blood only) 39.5 % (42-52); Hemoglobin 13.6 g/dL (14.0-18.0); Mean Corpuscular Hemoglobin 32.2 pg (25-34); Mean Corpuscular Hgb Conc 34.4 g/dL (32-36); Mean Corpuscular Volume 93.4 fL (80-100); Mean Platelet Volume 10.4 fL (7.4-10.4); Platelet Count 194 K/uL (130-400); RDW Coefficient of Variation 13.3 % (11.5-14.5); RDW Standard Deviation 45.3 fL (36.4-46.3); Red Blood Count 4.23 M/uL (4.7-6.1); White Blood Count 17.71 K/uL (4.8-10.8)
[2021-06-03 07:24] LABS: BUN Creatinine Ratio 29.9 (10-20); Creatinine Clr Calc Pharmacy 106.3 ml/min; Est GFR (African American) 105.8 ml/min; Est GFR (Non-African American) 91.3 ml/min; Potassium 4.3 mmol/L (3.5-5.1)
[2021-06-03] MEDS: ASPIRIN 81 MG ECTAB PO SCH ×2 (08:57→20:46)
[2021-06-03] MEDS: TAMSULOSIN HCL 0.4 MG CAP PO SCH (08:57)
[2021-06-03] MEDS: CeleBREX 200 MG CAP PO SCH ×2 (08:57→20:46)
[2021-06-03] MEDS: lisinopril 10 MG TAB PO SCH (08:57)
[2021-06-03] MEDS: oxyCODONE HCL IR 5 MG TAB (IMMEDIATE RELEASE) PO PRN ×2 (09:00→18:05)
[2021-06-03] MEDS: DOCUSATE SODIUM 100 MG CAP PO SCH ×2 (09:00→20:46)
--- NOTE | 2021-06-03 10:07 | Orthopedic Progress Note ---
Date of Service June 03, 2021 Assessment & Plan (1) Primary osteoarthritis of left knee: Plan: Postop day 1 status post left total knee arthroplasty DT/OT protocols. Weightbearing as tolerated. DVT prophylaxis-aspirin p.o. twice daily, Marianne, NORA johnson. Pain management as written. Leukocytosis-likely secondary to preoperative steroids and surgical stress. Patient had 1 episode of burning on urination post catheterization but none since. Denies any other symptoms. DC planning-patient states he is planning for outpatient physical therapy. Admission and Anticipated Discharge Date Admission Date: June 02, 2021 Subjective Postop day 1 Patient sitting in his chair at the bedside. Physical therapy is present and getting ready to start their session. Patient states he had to be straight cath yesterday for 900 cc. Patient states he has been urinating since that time. Nursing states he had a small amount of blood in his urine on his first voiding trial and some slight burning on urination but nothing since. Pain is controlled at this time. Denies shortness of breath, chest pain, lightheadedness. Physical Exam Physical Exam: Dressings are clean, dry, and intact. Calves are soft and nontender. Neurovascular is intact. Toes are mobile. He has good dorsiflexion and plantarflexion of the left foot. Hemovac drainage from the previous shift was 325 mL and he had another 125 mL this morning just prior to his physical therapy session. Results & Data ([facility]) Vital Signs (Past 12 Hours) Vital Signs Temp Pulse Resp BP Pulse Ox 06/03/21 07:22 36.5 C 94 H 18 121/73 93 06/03/21 03:20 36.6 C 71 18 121/67 95 06/02/21 22:15 36.7 C 83 22 119/68 94 Laboratory Results Laboratory Results WBC 17.71 K/uL (4.8-10.8) H 06/03/21 06:26 RBC 4.23 M/uL (4.7-6.1) L 06/03/21 06:26 Hgb 13.6 g/dL (14.0-18.0) L 06/03/21 06:26 Hct 39.5 % (42-52) L 06/03/21 06:26 MCV 93.4 fL (80-100) 06/03/21 06:26 MCH 32.2 pg (25-34) 06/03/21 06:26 MCHC 34.4 g/dL (32-36) 06/03/21 06:26 RDW Std Deviation 45.3 fL (36.4-46.3) 06/03/21 06:26 RDW Coeff of Summer 13.3 % (11.5-14.5) 06/03/21 06:26 Plt Count 194 K/uL (130-400) 06/03/21 06:26 MPV 10.4 fL (7.4-10.4) 06/03/21 06:26 Sodium 136 mmol/L (136-145) 06/03/21 06:26 Potassium 4.3 mmol/L (3.5-5.1) 06/03/21 06:26 Chloride 109 mmol/L (98-107) H 06/03/21 06:26 Carbon Dioxide 21 mmol/L (21-32) 06/03/21 06:26 Anion Gap 6 (3-11) 06/03/21 06:26 BUN 23 mg/dl (6-23) 06/03/21 06:26 Creatinine 0.77 mg/dl (0.6-1.4) 06/03/21 06:26 Est Cr Clr Drug Dosing 106.3 ml/min 06/03/21 06:26 Est GFR ( Amer) 105.8 ml/min 06/03/21 06:26 Est GFR (Non-Af Amer) 91.3 ml/min 06/03/21 06:26 BUN/Creatinine Ratio 29.9 (10-20) H 06/03/21 06:26 Glucose 129 mg/dl (70-99(Fasting)) H 06/03/21 06:26 Calcium 8.0 mg/dl (8.5-10.1) L 06/03/21 06:26 SARS-CoV-2, RNA, NAAT NEGATIVE (NEGATIVE) 06/02/21 Unknown Blood Type A Negative 06/02/21 09:51 Antibody Screen NEGATIVE 06/02/21 09:51 Impressions Knee X-Ray 06/02/21 14:47 XR knee LT 1 or 2V routine CLINICAL HISTORY: Surgical Post Op. Status post knee replacement COMPARISON STUDY: No previous studies for comparison. TECHNIQUE: 2 left knee views FINDINGS: The patient is status post total knee replacement. The prosthetic components are in anatomic alignment with no acute abnormality seen. Air is present within the soft tissues from the procedure. Skin orion are seen anteriorly. IMPRESSION: 1. Status post total knee replacement. ACT 112: Negative or not required by law. Electronically signed by: Denzel Damian M.D. 06/02/2021 3:22 PM
[2021-06-03] MEDS: MULTIVITAMIN TAB PO SCH (10:40)
--- NOTE | 2021-06-03 17:12 | Hospitalist Progress Note ---
Date of Service June 03, 2021 Assessment & Plan (1) Primary osteoarthritis of left knee: Plan: POD#[address] Rose Stable overall Hemoglobin decreased from 16-13 Likely acute blood loss anemia Monitor CBC daily Transfuse for hemoglobin below 8 activity and wound care orders as per ortho pain control with bowel regimen PT/OT (2) Diverticulitis: Plan: Started on Cipro and Flagyl on 05/25 for suspected diverticulitis by PCP Patient reports symptoms have resolved Outpatient follow-up (3) BPH (benign prostatic hyperplasia): Plan: Patient has required straight cath x 1 postoperatively Continue dutasteride and tamsulosin (4) Hypertension: Plan: BP controlled, continue lisinopril (5) Hyperlipidemia: Plan: Continue statin (6) DVT prophylaxis: Plan: ASA 81 mg BID as per Ortho Thank you for this consultation. We will follow the patient with you during their hospital stay. You can reach a member of the [facility] Hospitalist Team 29/08 via the [facility] Hospitalist role in [place] Text. Admission and Anticipated Discharge Date Admission Date: June 02, 2021 Subjective ff up for s/p L knee OA, etc seen resting in chair, comfortable In good spirits Smiling States he feels fine overall no chest pain, dyspnea, palpitations, dizziness Has pain over the surgical site but adequately controlled No other symptoms Review of Systems Review of Systems: all noted and negative except for above Physical Exam Physical Exam: General- oriented x 3, not in distress, speaks in sentences with no effort or accessory muscle use Head- atraumatic Eyes- PERRL, EOMI, anicteric ENT- oropharynx clear Neck- supple, no JVD, no adenopathy, no thyromegaly; carotids +2/2, no bruits appreciated Lungs- clear to auscultation bilaterally, no rales/wheezes Heart- normal rate, regular rhythm; no murmur, no gallop, no rub appreciated Abdomen- normal bowel sounds, nondistended, soft, nontender, no masses or hepatosplenomegaly Extremities- no pretibial edema, no calf tenderness; peripheral pulses intact Left knee: Heavy dressing in place, wound VAC in place, with sanguinous output Neuro- alert, oriented x 3; CN 2-12 grossly intact; motor 5/5 bilaterally;sensation 100% on all extremities; no other gross focal neurologic deficits Skin- warm & dry Results & Data Results & Data ([facility]) Vital Signs (Past 12 Hours) Vital Signs Temp Pulse Resp BP Pulse Ox 06/03/21 16:23 36.7 C 75 18 120/77 97 06/03/21 07:22 36.5 C 94 H 18 121/73 93 all noted and reviewed including below
[2021-06-03] MEDS: SIMVASTATIN 20 MG TAB PO SCH (20:45)
[2021-06-03] MEDS: SENNA 8.6 MG TAB PO SCH (20:46)
[2021-06-04] MEDS: oxyCODONE HCL IR 5 MG TAB (IMMEDIATE RELEASE) PO PRN ×3 (00:49→13:36)
[2021-06-04] MEDS: ACETAMINOPHEN 500 MG TAB PO SCH ×2 (06:09→13:34)
[2021-06-04 06:28] LABS: Hematocrit (blood only) 35.9 % (42-52); Hemoglobin 12.2 g/dL (14.0-18.0); Mean Corpuscular Hemoglobin 32.5 pg (25-34); Mean Corpuscular Volume 95.7 fL (80-100); Mean Platelet Volume 10.4 fL (7.4-10.4); Platelet Count 181 K/uL (130-400); RDW Coefficient of Variation 13.6 % (11.5-14.5); RDW Standard Deviation 46.9 fL (36.4-46.3); Red Blood Count 3.75 M/uL (4.7-6.1); White Blood Count 12.94 K/uL (4.8-10.8)
[2021-06-04 06:51] LABS: BUN Creatinine Ratio 31.3 (10-20); Calcium 7.7 mg/dl (8.5-10.1); Creatinine Clr Calc Pharmacy 98.6 ml/min; Est GFR (African American) 102.6 ml/min; Est GFR (Non-African American) 88.5 ml/min; Potassium 4.1 mmol/L (3.5-5.1)
[2021-06-04] MEDS: CeleBREX 200 MG CAP PO SCH (08:13)
[2021-06-04] MEDS: ASPIRIN 81 MG ECTAB PO SCH (08:13)
[2021-06-04] MEDS: MULTIVITAMIN TAB PO SCH (08:14)
[2021-06-04] MEDS: lisinopril 10 MG TAB PO SCH (08:14)
[2021-06-04] MEDS: TAMSULOSIN HCL 0.4 MG CAP PO SCH (08:14)
[2021-06-04] MEDS: DOCUSATE SODIUM 100 MG CAP PO SCH (08:15)
--- NOTE | 2021-06-04 08:56 | Orthopedic Progress Note ---
Date of Service June 04, 2021 Assessment & Plan (1) Primary osteoarthritis of left knee: Plan: Postop day 1 status post left total knee arthroplasty PT/OT protocols. Weightbearing as tolerated. DVT prophylaxis-aspirin p.o. twice daily, SCDs, NORA johnson. Pain management as written. Leukocytosis-slowly resolving We will get a urinalysis this morning secondary to the patient's frequency during the night. DC planning-patient states he is planning for outpatient physical therapy. Plan for possible discharge to home today. Admission and Anticipated Discharge Date Admission Date: June 02, 2021 Subjective Postop day 2 Patient sitting up at the bedside eating his breakfast. Multiple questions this morning about medications etc. Patient was up multiple times last night urinating. He thinks at one point he did have a slight little bit of pain and or blood but is not sure now. He denies burning on urination. He denies chest pain, shortness of breath, lightheadedness. Patient ambulated well during therapy yesterday. Pain is controlled. Physical Exam Physical Exam: Silverlon dressing is noted to have some scant drainage in the window but is otherwise intact. Hemovac drain is present. Calves are soft nontender. Neurovascular intact. Toes are mobile. Results & Data ([facility]) Vital Signs (Past 12 Hours) Vital Signs Temp Pulse Resp BP Pulse Ox 06/04/21 07:14 36.6 C 80 18 144/84 H 96 06/03/21 22:10 36.8 C 74 18 147/83 H 97 Laboratory Results Laboratory Results WBC 12.94 K/uL (4.8-10.8) H 06/04/21 05:38 RBC 3.75 M/uL (4.7-6.1) L 06/04/21 05:38 Hgb 12.2 g/dL (14.0-18.0) L 06/04/21 05:38 Hct 35.9 % (42-52) L 06/04/21 05:38 MCV 95.7 fL (80-100) 06/04/21 05:38 MCH 32.5 pg (25-34) 06/04/21 05:38 MCHC 34.0 g/dL (32-36) 06/04/21 05:38 RDW Std Deviation 46.9 fL (36.4-46.3) H 06/04/21 05:38 RDW Coeff of Summer 13.6 % (11.5-14.5) 06/04/21 05:38 Plt Count 181 K/uL (130-400) 06/04/21 05:38 MPV 10.4 fL (7.4-10.4) 06/04/21 05:38 Sodium 136 mmol/L (136-145) 06/04/21 05:38 Potassium 4.1 mmol/L (3.5-5.1) 06/04/21 05:38 Chloride 110 mmol/L (98-107) H 06/04/21 05:38 Carbon Dioxide 23 mmol/L (21-32) 06/04/21 05:38 Anion Gap 3 (3-11) 06/04/21 05:38 BUN 26 mg/dl (6-23) H 06/04/21 05:38 Creatinine 0.83 mg/dl (0.6-1.4) 06/04/21 05:38 Est Cr Clr Drug Dosing 98.6 ml/min 06/04/21 05:38 Est GFR ( Amer) 102.6 ml/min 06/04/21 05:38 Est GFR (Non-Af Amer) 88.5 ml/min 06/04/21 05:38 BUN/Creatinine Ratio 31.3 (10-20) H 06/04/21 05:38 Glucose 105 mg/dl (70-99(Fasting)) H 06/04/21 05:38 Calcium 7.7 mg/dl (8.5-10.1) L 06/04/21 05:38 SARS-CoV-2, RNA, NAAT NEGATIVE (NEGATIVE) 06/02/21 Unknown Blood Type A Negative 06/02/21 09:51 Antibody Screen NEGATIVE 06/02/21 09:51
[2021-06-04 11:44] LABS: Appearance Urine Clear (Clear); Bilirubin Urine Negative (Negative); Blood Urine Negative (Negative); Color Urine Yellow; Glucose Urine UA Negative (Negative); Ketones Urine Negative (Negative); Leukocyte Esterase Urine Negative (Negative); Nitrite Urine Negative (Negative); Protein Urine Negative (Negative); Specific Gravity Urine 1.021 (1.000-1.030); Urobilinogen Urine Negative (Negative); pH Urine 5.5 (4.5-7.5)
--- NOTE | 2021-06-06 19:12 | Discharge Summary ---
Date of Service June 06, 2021 Admission HPI Per Admitting Provider 70 year old male with PMHx significant for HTN, high cholesterol, and diverticulitis presents with ongoing left knee pain. Pain interferes with his daily activities. He has failed conservative measures including injections and anti-inflammatories. He would like to proceed with replacement. Patient denies headaches, sweats, fevers, chills, double vision, blurred vision, cough, sore throat, dysphagia, chest pain, sob, wheezing, n/v/d/c, numbness, tingling, fatigue, urinary symptoms, mood disorders. ROS positive for left knee pain and stiffness. Admission Exam Per Admitting Provider Constitutional: well developed and well nourished; no acute distress Eyes: PERRL, conjunctivae normal, anicteric sclerae ENMT: external ear and nose normal, oropharynx normal Neck: trachea midline, no thyromegaly Respiratory: normal respiratory effort, lungs clear to auscultation Cardiovascular: RRR, no murmur, no edema Musculoskeletal: Left knee: Varus alignment. Medial and lateral joint line tenderness. Severe crepitation with ROM. ROM is 10-105 degrees. Stable to valgus and varus stress. Skin: no rashes, warm and dry Neurologic: patellar DTR's 2+ bilat, sensation intact Psychiatric: A+Ox3, euthymic affect Principal Diagnosis Left knee osteoarthritis Discharge Exam Silverlon dressing is noted to have some scant drainage in the window but is otherwise intact. Hemovac drain is present. Calves are soft nontender. Neurovascular intact. Toes are mobile. Discharge Data Allergies Allergy/AdvReac Type Severity Reaction Status Date / Time Penicillins Allergy Unknown Rash Verified 06/02/21 10:08 Consultations 05/31/21 15:12 Consult Hospitalist Routine Procedures Performed Operation Date: 06/02/21 11:20 Actual Procedures p Left Total Knee Arthroplasty(Left) - Zeyad Rose MD Ordered Studies 06/02/21 05:00 US - OR guided needle placemen Routine Hospital Course (1) Primary osteoarthritis of left knee: Patient presented for same day admission following left total knee arthroplasty on 06/02/21. He tolerated procedure well. The Patient had an uneventful hospital course. He did have urinary an episode of urinary retention requiring straight cath as well as frequency POD#1. UA was ordered and was unremarkable. Post-operatively, his activity was progressed and well tolerated. They participated in PT with ambulation distance of 120 feet. ROM of operative knee reached 93 degrees. Labs remained stable- lowest hemoglobin recorded: 12.2. Dr. Tyler of medical service was consulted for medical management during admission. Pain controlled on oral medications. Please refer to daily progress notes and PT notes for complete details. After exam on 06/04/21, patient was felt to be stable for discharge home with plans on attending outpatient PT. Patient will f/u in the office in about 2 weeks for further evaluation including x-rays and incision check, sooner if having any issues or concerns. Postop day 2 status post left total knee arthroplasty PT/OT protocols. Weightbearing as tolerated. DVT prophylaxis-aspirin p.o. twice daily, SCDs, NORA hose. Pain management as written. Leukocytosis-slowly resolving We will get a urinalysis this morning secondary to the patient's frequency during the night. DC planning-patient states he is planning for outpatient physical therapy. Plan for possible discharge to home today. Lab Results 06/02/21 06/02/21 06/03/21 Range/Units 09:51 Unknown 06:26 WBC 17.71 H (4.8-10.8) K/uL RBC 4.23 L (4.7-6.1) M/uL Hgb 13.6 L (14.0-18.0) g/dL Hct 39.5 L (42-52) % MCV 93.4 (80-100) fL MCH 32.2 (25-34) pg MCHC 34.4 (32-36) g/dL RDW Std Deviation 45.3 (36.4-46.3) fL RDW Coeff of Summer 13.3 (11.5-14.5) % Plt Count 194 (130-400) K/uL MPV 10.4 (7.4-10.4) fL Sodium (136-145) mmol/L Potassium (3.5-5.1) mmol/L Chloride (98-107) mmol/L Carbon Dioxide (21-32) mmol/L Anion Gap (3-11) BUN (6-23) mg/dl Creatinine (0.6-1.4) mg/dl Est Cr Clr Drug Dosing ml/min Est GFR ( Amer) ml/min Est GFR (Non-Af Amer) ml/min BUN/Creatinine Ratio (10-20) Glucose (70-99(Fasting)) mg/dl Calcium (8.5-10.1) mg/dl Urine Color Urine Appearance (Clear) Urine pH (4.5-7.5) Ur Specific [place] (1.000-1.030) Urine Protein (Negative) Urine Glucose (UA) (Negative) Urine Ketones (Negative) Urine Blood (Negative) Urine Nitrite (Negative) Urine Bilirubin (Negative) Urine Urobilinogen (Negative) Ur Leukocyte Esterase (Negative) SARS-CoV-2, RNA, NAAT NEGATIVE (NEGATIVE) Blood Type A Negative Antibody Screen NEGATIVE 06/03/21 06/04/21 06/04/21 Range/Units 06:26 05:38 05:38 WBC 12.94 H (4.8-10.8) K/uL RBC 3.75 L (4.7-6.1) M/uL Hgb 12.2 L (14.0-18.0) g/dL Hct 35.9 L (42-52) % MCV 95.7 (80-100) fL MCH 32.5 (25-34) pg MCHC 34.0 (32-36) g/dL RDW Std Deviation 46.9 H (36.4-46.3) fL RDW Coeff of Summer 13.6 (11.5-14.5) % Plt Count 181 (130-400) K/uL MPV 10.4 (7.4-10.4) fL Sodium 136 136 (136-145) mmol/L Potassium 4.3 4.1 (3.5-5.1) mmol/L Chloride 109 H 110 H (98-107) mmol/L Carbon Dioxide 21 23 (21-32) mmol/L Anion Gap 6 3 (3-11) BUN 23 26 H (6-23) mg/dl Creatinine 0.77 0.83 (0.6-1.4) mg/dl Est Cr Clr Drug Dosing 106.3 98.6 ml/min Est GFR ( Amer) 105.8 102.6 ml/min Est GFR (Non-Af Amer) 91.3 88.5 ml/min BUN/Creatinine Ratio 29.9 H 31.3 H (10-20) Glucose 129 H 105 H (70-99(Fasting)) mg/dl Calcium 8.0 L 7.7 L (8.5-10.1) mg/dl Urine Color Urine Appearance (Clear) Urine pH (4.5-7.5) Ur Specific [place] (1.000-1.030) Urine Protein (Negative) Urine Glucose (UA) (Negative) Urine Ketones (Negative) Urine Blood (Negative) Urine Nitrite (Negative) Urine Bilirubin (Negative) Urine Urobilinogen (Negative) Ur Leukocyte Esterase (Negative) SARS-CoV-2, RNA, NAAT (NEGATIVE) Blood Type Antibody Screen 06/04/21 Range/Units 11:25 WBC (4.8-10.8) K/uL RBC (4.7-6.1) M/uL Hgb (14.0-18.0) g/dL Hct (42-52) % MCV (80-100) fL MCH (25-34) pg MCHC (32-36) g/dL RDW Std Deviation (36.4-46.3) fL RDW Coeff of Summer (11.5-14.5) % Plt Count (130-400) K/uL MPV (7.4-10.4) fL Sodium (136-145) mmol/L Potassium (3.5-5.1) mmol/L Chloride (98-107) mmol/L Carbon Dioxide (21-32) mmol/L Anion Gap (3-11) BUN (6-23) mg/dl Creatinine (0.6-1.4) mg/dl Est Cr Clr Drug Dosing ml/min Est GFR ( Amer) ml/min Est GFR (Non-Af Amer) ml/min BUN/Creatinine Ratio (10-20) Glucose (70-99(Fasting)) mg/dl Calcium (8.5-10.1) mg/dl Urine Color Yellow Urine Appearance Clear (Clear) Urine pH 5.5 (4.5-7.5) Ur Specific [place] 1.021 (1.000-1.030) Urine Protein Negative (Negative) Urine Glucose (UA) Negative (Negative) Urine Ketones Negative (Negative) Urine Blood Negative (Negative) Urine Nitrite Negative (Negative) Urine Bilirubin Negative (Negative) Urine Urobilinogen Negative (Negative) Ur Leukocyte Esterase Negative (Negative) SARS-CoV-2, RNA, NAAT (NEGATIVE) Blood Type Antibody Screen Total Time Total Time Spent Total Time Spent (In Minutes): 20 Discharge Plan Discharge Items Patient Disposition: Home - Self-Care Reason For Visit: Unilateral Primary Osteoarthritis left knee Discharge Diagnosis: Osteoarthritis Left Knee Activity: Per Instructions section Weightbearing: Left weightbearing Weightbearing Comment: As tolerated with walker Non-emergency contact: Surgeon Call non-emergency contact if: your pain is not controlled, your temperature is above 101.5, your wound has increased redness and your wound has increased drainage Follow-up/Referrals: Zeyad Rose MD [Surgeon] - (Follow up in 14 days from the day of your surgery for your first check up) Camila Vásquez PA-C [Primary Care Provider] - 06/14/21 12:20 pm (We have made a follow up appointment for you at the [place] office of Camila Vásquez PA-C, your PCP. Please call them if you need to change the a ppointment. ) Diet: Regular Addtl Attending Provider Instructions: ACTIVITY RECOMMENDATIONS: SELF CARE INSTRUCTIONS AFTER TOTAL KNEE REPLACEMENT A. You may need to continue a physical therapy program after discharge from the hospital. There are several options available to you. Your doctor will assist you in selecting the best one for you. 1. An out-patient facility 2 to 3 times a week for therapy or home therapy. 2. Continue working on all exercises taught to you in the hospital. Your goals should be to increase bending of your knee to 90 degrees and beyond and to fully straighten your knee. B. You may progress at your own pace from walking with a walker or crutches to a cane; then to no assistive devices. C. Make walking a part of your daily routine. Be up as much as comfortable with rest periods throughout the day. Rest with leg elevation is very important. Use the ice wrap frequently for the first 3-4 weeks. D. There are no restrictions on activities. You may ride in a car, shop, participate in financial institution treasurer and all social activities. E. Wear the long elastic stockings (NORA hose) 20 hours a day for 2 weeks after surgery. They can be removed several times a day for laundering and for a bath. F. You may shower, no tub baths until cleared by your doctor. SPECIAL CARE INSTRUCTIONS: VERY IMPORTANT TO READ AND REVIEW A. There are a few signs you need to watch for after you are home. Call [facility] if you notice any of the followin. Increased severe knee pain. Some pain is expected especially when you exercise. 2. Increased swelling in your leg or knee; pain or swelling of the calf muscle in either lower leg. 3. Any fluid drainage from the incision. 4. Shortness of breath or chest pain. B. Please call [facility] at if you have any concerns or questions about your operation or recovery. The doctor or his nurse will return your call promptly. C. You must take antibiotics before dental work, bladder, bowel or other surgery. Your doctor will provide you with a permanent care to carry describing this precaution. IMPORTANT: * REMEMBER TO TAKE ASPIRIN, 81 MG, TWICE DAILY FOR 4 WEEKS UNLESS OTHERWISE DIRECTED. THIS IS YOUR BLOOD THINNER.. * CALL IF INCREASED PAIN, REDNESS, DRAINAGE OR FEVER GREATER THAT 101. * WEAR NORA HOSE 20 HOURS PER DAY FOR 2 WEEKS. * Silverlon- This is a large adhesive bandage that contains silver ions. This helps your incision heal by fighting off bacteria and protecting it from the outside environment. You are permitted to shower with this dressing. This will remain on your incision for 7 days and then should be removed. Some visible blood or drainage through the dressing window is normal. If there is significant drainage or leaking noted before the 7 days notify your doctor's office immediately. Once removed, keep incision clean and dry. If there is any drainage or redness noted, please call your surgeon. . FOLLOW UP VISIT: If appointment is not already scheduled: Please call [facility] to make a follow-up appointment for 2 weeks after your surgery at . Stand-Alone Forms: [email or web address], Opioid Pain Management, Smoking Cessation Medications and DC Order Prescriptions: New celecoxib [Celebrex] 200 mg Capsule 200 mg PO BID 14 Days Qty: 28 RF: 0 aspirin 81 mg Tablet,Delayed Release (Dr/Ec) 81 mg PO BID 30 Days Qty: 60 RF: 0 acetaminophen [Tylenol Extra Strength] 500 mg Tablet 1,000 mg PO Q8 14 Days Qty: 84 RF: 0 oxycodone 5 mg Tablet 5 mg PO Q4H MDD 6 PRN (Reason: pain) Qty: 30 RF: 0 Continued tamsulosin 0.4 mg Capsule 0.4 mg PO QAM RF: 0 simvastatin [Zocor] 20 mg Tablet 20 mg PO HS RF: 0 lisinopril 10 mg Tablet 10 mg PO QAM RF: 0 dutasteride [Avodart] 0.5 mg Capsule 0.5 mg PO QAM RF: 0 diclofenac sodium 1 % Gel 2 g TOPICAL QID PRN (Reason: Pain) RF: 0 Discontinued meloxicam 15 mg Tablet 15 mg PO QAM RF: 0 aspirin 81 mg Tablet 81 mg PO DAILY RF: 0 Discharge Orders: Discharge Order (Routine); Ordered 06/04/21 Ordered By: Juarez Callahan/Other Patient Handouts: Total Knee Replacement, Preventing Deep Vein Thrombosis, Knee Replacement Total Dc Admission Data Admit Date/Time: 06/02/21 14:47 Attending Provider: Zeyad Rose Admit Provider: Zeyad Rose Primary Care Provider: Camlia Vásquez. Other Providers: Chandrakant Addison Other Interventions: Discharge Summary Assessment (RN) Last Done: 06/04/21 12:38
== END 2021-06-04 14:45 | disposition home or self-care (01) ==
LOC: 3E 09:28 → ASU 09:28